=== PATIENT | male | born 1950 | race Caucasian/White ===

== ENCOUNTER 2017-03-21 19:22 | Emergency (ER) | payer OTHER ==
[~2017-03-21] VITALS: Ht 180.3 cm; Wt 115.0 kg
[2017-03-21 19:27] VITALS: Ht 180.3 cm; Wt 115.0 kg
[2017-03-21] MEDS ORDERED: METF-384 PO (19:58)
[2017-03-21] MEDS ORDERED: LISI40TA PO (19:58)
[2017-03-21] MEDS ORDERED: AMLO-110 PO (19:58)
[2017-03-21] MEDS ORDERED: INSDGIPEN SC (19:58)
--- NOTE | 2017-03-21 20:06 | DIAGNOSTIC IMAGING REPORT ---
CHEST 2 VIEWS ROUTINE CLINICAL HISTORY: Cough. COMPARISON STUDY: No previous studies for comparison. FINDINGS: Lung volumes are at the upper limits of normal. There is no pneumothorax or pleural effusion. Mild bibasilar opacities favor atelectasis. There is no consolidation to suggest pneumonia and there is no evidence of pulmonary edema. There may be underlying emphysema. Cardiac size is at the upper limits of normal. IMPRESSION: 1. No acute cardiopulmonary findings. 2. Suspected emphysema. Electronically signed by: Carlos Enrique Eli M.D. 03/21/2017 8:05 PM Dictated Date/Time: 03/21/2017 8:03 PM
--- NOTE | 2017-03-21 20:21 | EMERGENCY ROOM VISIT NOTE ---
ED Visit Note First contact with patient: 19:31 CHIEF COMPLAINT: Cough HISTORY OF PRESENT ILLNESS: This 66-year-old male presents the ER with chief complaint of cough for the past 4 days. The patient states that sometimes he is able to cough up mucus other times he is unable to cough the mucus out. The patient denies any fever, head congestion, runny nose, ear pain or sore throat. The patient states that his throat is irritated from the coughing and also states that his muscles in his back and abdomen are sore from all the coughing. He states he cannot sleep at night. He states he called his family doctor who was "not in" and therefore he came to the emergency room. His family doctor is Dr. Sanchez. REVIEW OF SYSTEMS: 6 system review was performed and was negative unless stated otherwise in history of present illness. PMH: The patient is healthy; there is no significant medical or surgical history. SOCIAL HISTORY: Patient lives at home. PHYSICAL EXAM: Vital Signs: Temperature 36.7, blood pressure 200/79, pulse 92, respiratory rate 20 Reviewed Nurse's notes. Oxygen saturation is 92 % on room air which is slightly low . MENTAL STATUS: Alert, oriented, coherent. EARS: Canals clear. TMs good light reflex. No erythema or fluid level noted. NOSE: Nasal mucosa without erythema or engorgement. PHARYNX: No erythema or edema noted. Airway is adequate. NECK: Supple, non-tender. CHEST: Good expansion bilaterally, symmetrical, no retractions. HEART: Regular and normal heart sounds, no murmur, gallop or rub. LUNGS: Clear to auscultation without wheezes rales or rhonchi. EMERGENCY DEPARTMENT COURSE: The patient was evaluated. Chest x-ray was ordered and interpreted by the radiologist and myself. DIAGNOSTICS:CHEST 2 VIEWS ROUTINE CLINICAL HISTORY: Cough. COMPARISON STUDY: No previous studies for comparison. FINDINGS: Lung volumes are at the upper limits of normal. There is no pneumothorax or pleural effusion. Mild bibasilar opacities favor atelectasis. There is no consolidation to suggest pneumonia and there is no evidence of pulmonary edema. There may be underlying emphysema. Cardiac size is at the upper limits of normal. IMPRESSION: 1. No acute cardiopulmonary findings. 2. Suspected emphysema. Electronically signed by: Carlos Enrique Eli M.D. 03/21/2017 8:05 PM DIAGNOSIS: URI Elevated blood pressure DISCHARGE INSTRUCTIONS AND TREATMENT: Take Hycodan syrup at night as prescribed. Also would recommend [id number] Mucinex to take as directed on the label. Follow-up with your PCP in 2 days for recheck. At this time they can also recheck her blood pressure. Current/Historical Medications Scheduled Amlodipine (Norvasc), 5 MG PO QPM Insulin Glargine (Lantus Solostar), 64 UNITS SC QAM Lisinopril (Zestril), 40 MG PO QPM Metformin Hcl (Glucophage), 1,000 MG PO BID Allergies Coded Allergies: No Known Allergies (Unverified , 03/21/17) Vital Signs Date Time Temp Pulse Resp B/P Pulse Ox O2 Delivery O2 Flow Rate FiO2 03/21/17 19:27 36.7 92 20 200/79 92 Room Air Departure Information Referrals Parker Sanchez III, M.D. (PCP) Patient Instructions [facility]
[2017-03-21] MEDS ORDERED: HYDR5SYP11 PO (20:22)
[2017-03-21] MEDS ORDERED: HYCODAN 60ML BOTTLE HOMEPACK PO ONE (20:30)
[2017-03-21 20:36] VITALS: BP 184/78; PULSE 92; TEMP 36.7; O2SAT 90
== END 2017-03-21 20:37 | disposition home or self-care (01) ==
LOC: C.EDB 19:23
DX: J06.9 Acute upper respiratory infection, unspecified (principal); R03.0 Elevated blood-pressure reading, without diagnosis of hypertension